=== PATIENT | female | born 1995 | race Caucasian/White ===

== ENCOUNTER 2025-04-27 03:23 | Emergency (ER) | payer MEDICAID, OTHER ==
[~2025-04-27] VITALS: Ht 154.9 cm; Wt 109.1 kg
[~2025-04-27 03:23] MED LIST: NOCURR
[2025-04-27 03:28] VITALS: TEMP 98.1
[2025-04-27 03:58] LABS: PLATELET COUNT (AUTO) 334 K/uL (150-450); RED BLOOD CELL COUNT(AUTO) 4.45 MIL/uL (4.00-5.20); RED CELL DISTRIBUTION WIDTH 13.1 % (11.5-14.5); WHITE BLOOD COUNT (AUTO) 12.2 K/uL (4.5-11.0)
[2025-04-27 04:09] LABS: CALCIUM, TOTAL 8.7 mg/dL (8.8-10.5); CREATININE 0.53 mg/dL (0.60-1.30); GLOMERULAR FILTR. RATE CALC > 60 mL/min (>60); GLUCOSE,RANDOM 102 mg/dL (70-110); SODIUM SERUM 136 mmol/L (136-145); UREA NITROGEN, BLOOD 11 mg/dL (7-18)
[2025-04-27 04:20] LABS: ASPARTATE AMINOTRANSFERASE 21 U/L (15-37); HCG,QUANTITATIVE < 1 mIU/mL (0-6); TOTAL PROTEIN, SERUM 8.0 g/dL (6.4-8.2)
[2025-04-27] MEDS ORDERED: IOHEXOL 350 MG/ML 100 ML VIAL ONE (06:28)
[2025-04-27] MEDS ORDERED: SODIUM CHLORIDE 0.9% 100 ML ONE (06:28)
[2025-04-27 06:29] LABS: TROPONIN I-HIGH SENSITIVITY 4 ng/L (<51)
[2025-04-27] MEDS: FAMOTIDINE 20 MG/2 ML VIAL IVP ONE (06:40)
[2025-04-27] MEDS: MAG HYDROX/ALUMINUM HYD/SIMETH 30 ML SUSPENSION UDCUP PO ONE (06:40)
[2025-04-27] MEDS: ACETAMINOPHEN 500 MG TABLET PO ONE (06:40)
[2025-04-27 08:25] LABS: APPEARANCE,URINE CLEAR (CLEAR); GLUCOSE, URINE (UA) NEGATIVE (NEGATIVE); LEUKOCYTE ESTERASE ,URINE SMALL (NEGATIVE); NITRATE,URINE POSITIVE (NEGATIVE); OCCULT BLOOD,URINE NEGATIVE (NEGATIVE); SPECIFIC GRAVITIY, URINE 1.031 (1.003-1.030)
[2025-04-27 08:28] LABS: SQUAMOUS EPITHELIAL CELL,UR Few /LPF (None Seen)
[2025-04-27] MEDS: CEPHALEXIN MONOHYDRATE 500 MG CAPSULE PO ONE (08:57)
[2025-04-27] MEDS ORDERED: CEPH-558 PO (10:08)
[2025-04-27] MEDS ORDERED: ACET-3385 PO (10:08)
[2025-04-27 10:17] VITALS: BP 124/85; PULSE 72; RESP 18; O2SAT 100
== END 2025-04-27 10:25 | disposition home or self-care (01) ==
LOC: EMS 03:25
DX: K80.20 Calculus of gallbladder without cholecystitis without obstruction (principal); N39.0 Urinary tract infection, site not specified
CPT/HCPCS: 99285; 74177; 96374; 76705; 80048; 80076; 81001; 83690; 84484; 84702; 85025; 87077; 87086; 36415; 93005; Q9967; J3490; J7050; 87186